=== PATIENT | male | born 1955 | race Caucasian/White ===

== ENCOUNTER 2017-11-30 09:04 | Emergency (ER) | payer BC ==
--- OUTSIDE RECORDS SUMMARY | 2017-11-30 09:11 | XMS REPORT ---
:1955 External Reference #:[id number] Author Organization [employer] Address [address] [facility] [place] [address] [place] [address] Phone [phone] Care Team Providers Name Role Phone Joel Devine MD Primary Care Physician Unavailable Payers Type Date Identification Numbers Payment Provider Subscriber Commercial Effective: Policy Number: [id number] [place] Ag [place] 1988 Group Number: [id number] [address] PayID: [id number] [place] [address] Medigap Part B Expires: 2000 Policy Number: [facility] Ag Vicenten [id number] PayID: [id number] [address] [place] [address] Problems Date Description Provider Status Onset: 11/14/2016 Idiopathic peripheral neuropathy Elena Machuca MD Active Family History Date Family Member(s) Problem(s) Comments Father Heart Disease Father Stroke : (age 70 Father due to Heart bleeding complications on Years) Disease coumadin Father due to Heart () - paternal Disease grandparents, [place] Mother Diabetes Type II Mother Heart Disease Mother due to CHF () Mother due to CHF () - maternal grandparents - [place] age 68 Onset: Siblings 2 (10/13/2016) Siblings 2 1 sister cardiac issues,specifics unknown First Sister Diabetes Type II Social History Type Date Description Comments Marital Status 10/13/2016 single since approx 2009 Lives With Alone 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[employer] ETOH Use Currently consumes alcohol Smoking Patient has never smoked Recreational Drug Use Denies Drug Use Recreational Drug Use Denies Drug Use Alcohol use - 4 - 8 drinks a day Daily Caffeine Does Not Consume Caffeine Exercise Type/Frequency Exercises regularly Allergies, Adverse Reactions, Alerts Date Description Reaction Status Severity Comments 10/13/2016 NKDA active Medications Medication Date Status Form Strength Qnty SIG Indications Ordering Provider Lyrica 10/29/ Active Capsules 50mg 120ca take 1 at G60.9 Elena 2017 ps night for 1 MD Sven week then 1 twice a day for 1 week then 1 in the Am and 2 in the PM for 1 week then 2 twice a day. Propranolol HCL 04/02/ Active Caps ER 60mg 60cap 1 by mouth Anup ER 2016 24HR s every day Elliot Sanchez M.D. Lisinopril-Hydr / Active Tablets 20-12.5mg 90tab 2 tab by Unknown ochlorothiazide 0000 s mouth every morning for high blood pressure Lexapro / Active Tablets 20mg 1/2 by mouth Unknown 0000 every other day Cpap Mask And / Active Device Unknown Supplies 0000 Eszopiclone / Active Tablets 3mg 1 tab by Unknown 0000 mouth at bedtime prn for sleep MDD1 Atorvastatin / Active Tablets 40mg 1 by mouth Unknown Calcium 0000 every day for high cholesterol Klor-Con M20 / Active Tablets ER 20Meq 2 by mouth Unknown 0000 every day for low potassium (increased 10/30/16) Vitamin B-12 / Active Tablets 1000mcg 1 by mouth Unknown 0000 every day Fish Oil Double / Active Capsules 1200mg 2 by mouth Unknown Strength 0000 every day Gabapentin / Active Capsules 300mg 720ca up to 4 by Elena 0000 ps mouth twice MD Sven a day as directed Viagra / Active Tablets 100mg by mouth 0.5 Unknown 0000 or 1 tab 1h before intercourse prn Xarelto / Active Tablets 20mg 1 by mouth Unknown 0000 every day Amlodipine / Active Tablets 10mg 1 by mouth Unknown Besylate 0000 every day Amitriptyline 08/08/ Hx Tablets 25mg 30tab take 1 G60.9 Elena HCL 2017 - s tablet at MD Sven 10/21/ bedtime 2017 Amlodipine / Hx Tablets 10mg 1 by mouth Unknown Besylate 0000 - every day for high 2017 blood pressure Aspirin Ec / Hx Tablets DR 325mg 1 by mouth Unknown 0000 - every day for stroke 2017 prevention Propranolol HCL / Hx Tablets 60mg 1 tab a day Unknown 0000 - 2016 Vital Signs Date Vital Result Comment 10/29/2017 Height 71 inches 5'11" Weight 250.50 lb Heart Rate 80 /min BP Systolic Sitting 126 mmHg BP Diastolic Sitting 80 mmHg BMI (Body Mass Index) 34.9 kg/m2 10/22/2017 Height 71 inches 5'11" Weight 252.00 lb w/o shoes Heart Rate 56 /min BP Systolic Sitting 128 mmHg LA lg cuff BP Diastolic Sitting 70 mmHg LA lg cuff BMI (Body Mass Index) 35.1 kg/m2 Ejection Fraction 55-60% Beau 10/27/16 08/08/2017 Height 71 inches 5'11" Weight 251.38 lb Heart Rate 82 /min BP Systolic 126 mmHg BP Diastolic 84 mmHg BMI (Body Mass Index) 35.1 kg/m2 04/02/2017 Height 71 inches 5'11" Weight 254.25 lb without shoes Heart Rate 72 /min BP Systolic Sitting 134 mmHg LA, large cuff BP Diastolic Sitting 74 mmHg LA, large cuff BMI (Body Mass Index) 35.5 kg/m2 Ejection Fraction 55%-60% Beau 10/27/16 03/09/2017 Height 71 inches 5'11" Weight 255.25 lb Heart Rate 72 /min BP Systolic 130 mmHg BP Diastolic 78 mmHg BMI (Body Mass Index) 35.6 kg/m2 12/05/2016 Height 71 inches 5'11" Weight 262.00 lb Heart Rate 58 /min BP Systolic Sitting 124 mmHg LA, large BP Diastolic Sitting 70 mmHg LA, large BMI (Body Mass Index) 36.5 kg/m2 Ejection Fraction 55-60% Beau 10/27/16 11/14/2016 Height 71 inches 5'11" Weight 260.00 lb Heart Rate 64 /min BP Systolic Sitting 138 mmHg BP Diastolic Sitting 76 mmHg Respiratory Rate 14 /min BMI (Body Mass Index) 36.3 kg/m2 10/31/2016 Height 71 inches 5'11" Weight 269.00 lb with shoes Heart Rate 60 /min BP Systolic Sitting 132 mmHg LA lrg cuff BP Diastolic Sitting 70 mmHg LA lrg cuff BMI (Body Mass Index) 37.5 kg/m2 Ejection Fraction 55% - 60% Beau 10/27/16 10/26/2016 Height 71 inches 5'11" Weight 270.50 lb w/shoes Heart Rate 76 /min BP Systolic Sitting 100 mmHg LA lg cuff BP Diastolic Sitting 80 mmHg LA lg cuff BMI (Body Mass Index) 37.7 kg/m2 10/13/2016 Height 71 inches 5'11" Weight 267.00 lb with shoes Heart Rate 84 /min BP Systolic Sitting 136 mmHg LA lrg cuff BP Diastolic Sitting 82 mmHg LA lrg cuff BP Systolic Standing 128 mmHg la repeat BP Diastolic Standing 70 mmHg la repeat BMI (Body Mass Index) 37.2 kg/m2 Ejection Fraction 55% - 60% echo 12/06/14 Results Test Date Test Result H/L Range Note CBC Auto Diff 04/26/2017 White Blood Count 4.9 10^3/uL 3.5-10.8 Red Blood Count 4.68 10^6/uL 4.0-5.4 Hemoglobin 15.5 g/dL 14.0-18.0 Hematocrit 45 % 42-52 Mean Corpuscular Volume 96 fL High 80-94 Mean Corpuscular Hemoglobin 33 pg High 27-31 Mean Corpuscular HGB Conc 35 g/dL 31-36 Red Cell Distribution Width 13 % 10.5-15 Platelet Count 215 10^3/uL 150-450 Mean Platelet Volume 9 um3 7.4-10.4 Abs Neutrophils 2.8 10^3/uL 1.5-7.7 Abs Lymphocytes 1.4 10^3/uL 1.0-4.8 Abs Monocytes 0.4 10^3/uL 0-0.8 Abs Eosinophils 0.1 10^3/uL 0-0.6 Abs Basophils 0.1 10^3/uL 0-0.2 Abs Nucleated RBC 0 10^3/uL Granulocyte % 58.1 % 38-83 Lymphocyte % 28.7 % 25-47 Monocyte % 8.9 % 1-9 Eosinophil % 3.1 % 0-6 Basophil % 1.2 % 0-2 Nucleated Red Blood Cells % 0.1 Basic Metabolic Panel 04/26/2017 Sodium 139 mmol/L 133-145 Potassium 3.9 mmol/L 3.5-5.0 Chloride 102 mmol/L 101-111 Co2 Carbon Dioxide 27 mmol/L 22-32 Anion Gap 10 mmol/L 2-11 Glucose 86 mg/dL 70-100 Blood Urea Nitrogen 20 mg/dL 6-24 Creatinine 0.87 mg/dL 0.67-1.17 BUN/Creatinine Ratio 23.0 High 8-20 Calcium 9.4 mg/dL 8.6-10.3 Egfr Non- 89.2 >60 Egfr 114.7 >60 1 Laboratory test finding 04/26/2017 Hemoglobin A1c (Glyco HGB) 5.3 % 4.0- 5.6 2 Basic Metabolic Panel 12/05/2016 Sodium 138 mmol/L 133-145 Potassium 4.1 mmol/L 3.5-5.0 Chloride 103 mmol/L 101-111 Co2 Carbon Dioxide 28 mmol/L 22-32 Anion Gap 7 mmol/L 2-11 Glucose 90 mg/dL 70-100 Blood Urea Nitrogen 19 mg/dL 6-24 Creatinine 0.84 mg/dL 0.67-1.17 BUN/Creatinine Ratio 22.6 High 8-20 Calcium 9.2 mg/dL 8.6-10.3 Egfr Non- 92.9 >60 Egfr 119.5 >60 3 Laboratory test finding 12/05/2016 Magnesium 2.2 mg/dL 1.9-2.7 Hemoglobin A1c (Glyco HGB) 5.6 % Less than 6.0 4 Laboratory test finding 11/14/2016 Vitamin B12 525 pg/mL 180-914 5 Methylmalonic Acid Mma 0.15 nmol/mL <=0.40 6 Protein Electrophoresis 11/14/2016 Total Protein(Pep) 6.9 g/dL 6.3 - 7.9 Albumin 3.4 g/dL 3.4-4.7 Alpha-1 Globulin 0.3 g/dL 0.1-0.3 Alpha-2 Globulin 1.0 g/dL 0.6-1.0 Beta Globulin 1.0 g/dL 0.7-1.2 Gamma Globulin 1.2 g/dL 0.6-1.6 Albumin/Globulin Ratio 0.99 Impression See Comment 7 Comp Metabolic Panel 10/27/2016 Sodium 136 mmol/L 133-145 Potassium 3.8 mmol/L 3.5-5.0 Chloride 104 mmol/L 101-111 Co2 Carbon Dioxide 25 mmol/L 22-32 Anion Gap 7 mmol/L 2-11 Glucose 114 mg/dL High 70-100 Blood Urea Nitrogen 18 mg/dL 6-24 Creatinine 0.84 mg/dL 0.67-1.17 BUN/Creatinine Ratio 21.4 High 8-20 Calcium 9.0 mg/dL 8.6-10.3 Total Protein 6.5 g/dL 6.4-8.9 Albumin 3.9 g/dL 3.2-5.2 Globulin 2.6 g/dL 2-4 Albumin/Globulin Ratio 1.5 1-3 Total Bilirubin 0.90 mg/dL 0.2-1.0 Alkaline Phosphatase 70 U/L 34-104 Alt 26 U/L 7-52 Ast 19 U/L 13-39 Egfr Non- 92.9 >60 Egfr 119.5 >60 8 CBC Auto Diff 10/27/2016 White Blood Count 5.9 10^3/uL 3.5-10.8 Red Blood Count 4.71 10^6/uL 4.0-5.4 Hemoglobin 15.1 g/dL 14.0-18.0 Hematocrit 45 % 42-52 Mean Corpuscular Volume 95 fL High 80-94 Mean Corpuscular Hemoglobin 32 pg High 27-31 Mean Corpuscular HGB Conc 34 g/dL 31-36 Red Cell Distribution Width 13 % 10.5-15 Platelet Count 202 10^3/uL 150-450 Mean Platelet Volume 9 um3 7.4-10.4 Abs Neutrophils 3.9 10^3/uL 1.5-7.7 Abs Lymphocytes 1.3 10^3/uL 1.0-4.8 Abs Monocytes 0.5 10^3/uL 0-0.8 Abs Eosinophils 0.1 10^3/uL 0-0.6 Abs Basophils 0.1 10^3/uL 0-0.2 Abs Nucleated RBC 0 10^3/uL Granulocyte % 65.9 % 38-83 Lymphocyte % 22.1 % Low 25-47 Monocyte % 8.5 % 1-9 Eosinophil % 2.4 % 0-6 Basophil % 1.1 % 0-2 Nucleated Red Blood Cells % 0 Laboratory test finding 10/13/2016 TSH (Thyroid Stim Horm) 2.53 mcIU/mL 0.34-5.60 CBC Auto Diff 10/13/2016 White Blood Count 8.9 10^3/uL 3.5-10.8 Red Blood Count 4.86 10^6/uL 4.0-5.4 Hemoglobin 15.7 g/dL 14.0-18.0 Hematocrit 46 % 42-52 Mean Corpuscular Volume 94 fL 80-94 Mean Corpuscular Hemoglobin 32 pg High 27-31 Mean Corpuscular HGB Conc 35 g/dL 31-36 Red Cell Distribution Width 13 % 10.5-15 Platelet Count 207 10^3/uL 150-450 Mean Platelet Volume 9 um3 7.4-10.4 Abs Neutrophils 6.0 10^3/uL 1.5-7.7 Abs Lymphocytes 2.0 10^3/uL 1.0-4.8 Abs Monocytes 0.7 10^3/uL 0-0.8 Abs Eosinophils 0.1 10^3/uL 0-0.6 Abs Basophils 0.1 10^3/uL 0-0.2 Abs Nucleated RBC 0 10^3/uL Granulocyte % 66.8 % 38-83 Lymphocyte % 22.6 % Low 25-47 Monocyte % 8.3 % 1-9 Eosinophil % 1.6 % 0-6 Basophil % 0.7 % 0-2 Nucleated Red Blood Cells % 0 Laboratory test finding 10/13/2016 B-Type Natriuretic Peptide 150 pg/mL High 9 BNP Lipid Profile 10/13/2016 Triglycerides 192 mg/dL 10 (Trig/Chol/HDL) Cholesterol 155 mg/dL 11 HDL Cholesterol 42.1 mg/dL 12 LDL Cholesterol 75 mg/dL 13 Comp Metabolic Panel 10/13/2016 Sodium 137 mmol/L 133-145 Potassium 3.7 mmol/L 3.5-5.0 Chloride 103 mmol/L 101-111 Co2 Carbon Dioxide 26 mmol/L 22-32 Anion Gap 8 mmol/L 2-11 Glucose 95 mg/dL 70-100 Blood Urea Nitrogen 21 mg/dL 6-24 Creatinine 0.90 mg/dL 0.67-1.17 BUN/Creatinine Ratio 23.3 High 8-20 Calcium 9.3 mg/dL 8.6-10.3 Total Protein 6.7 g/dL 6.4-8.9 Albumin 4.2 g/dL 3.2-5.2 Globulin 2.5 g/dL 2-4 Albumin/Globulin Ratio 1.7 1-3 Total Bilirubin 0.90 mg/dL 0.2-1.0 Alkaline Phosphatase 79 U/L 34-104 Alt 21 U/L 7-52 Ast 19 U/L 13-39 Egfr Non- 85.8 >60 Egfr 110.3 >60 14 Lipid Panel - [facility] 10/13/2016 Creatine Kinase(CK) 110 U/L 10-223 1 Because ethnic data is not always readily available, this report includes an eGFR for both -Americans and non- Americans. The National Kidney Disease Education Program (NKDEP) does not endorse the use of the MDRD equation for patients that are not between the ages of 18 and 70, are , have extremes of body size, muscle mass, or nutritional status, or are non- or non-. According to the National Kidney Foundation, irrespective of diagnosis, the stage of the disease is based on the level of kidney function: Stage Description GFR(mL/min/1.73 m(2)) 1 Kidney damage with normal or decreased GFR 90 2 Kidney damage with mild decrease in GFR 60-89 3 Moderate decrease in GFR 30-59 4 Severe decrease in GFR 15-29 5 Kidney failure <15 (or dialysis) 2 Therapeutic target for the treatment of diabetes mellitus patients is <7% HBA1C, and in selective patients <6.0%. Please refer to [place] [employer] diabetic care guidelines for further information. 3 Because ethnic data is not always readily available, this report includes an eGFR for both -Americans and non- Americans. The National Kidney Disease Education Program (NKDEP) does not endorse the use of the MDRD equation for patients that are not between the ages of 18 and 70, are , have extremes of body size, muscle mass, or nutritional status, or are non- or non-. According to the National Kidney Foundation, irrespective of diagnosis, the stage of the disease is based on the level of kidney function: Stage Description GFR(mL/min/1.73 m(2)) 1 Kidney damage with normal or decreased GFR 90 2 Kidney damage with mild decrease in GFR 60-89 3 Moderate decrease in GFR 30-59 4 Severe decrease in GFR 15-29 5 Kidney failure <15 (or dialysis) 4 Therapeutic target for the treatment of diabetes Mellitus patients is <7% HBA1C, and in selective patients <6.0%.Please refer to [place] [employer] Diabetic care guidelines for further information. 5 Normal Range 180 to 914 Indeterminate Range 145 to 180 Deficient Range <145 6 ADDITIONAL INFORMATION This test was developed and its performance characteristics determined by [facility] in a manner consistent with CLIA requirements. This test has not been cleared or approved by the U.S. Food and Drug Administration. Test Performed by: [facility] [address] [place] [address] 7 RESULT: No apparent monoclonal protein on serum electrophoresis. Test Performed by: [facility] [address] [place] [address] 8 Because ethnic data is not always readily available, this report includes an eGFR for both -Americans and non- Americans. The National Kidney Disease Education Program (NKDEP) does not endorse the use of the MDRD equation for patients that are not between the ages of 18 and 70, are , have extremes of body size, muscle mass, or nutritional status, or are non- or non-. According to the National Kidney Foundation, irrespective of diagnosis, the stage of the disease is based on the level of kidney function: Stage Description GFR(mL/min/1.73 m(2)) 1 Kidney damage with normal or decreased GFR 90 2 Kidney damage with mild decrease in GFR 60-89 3 Moderate decrease in GFR 30-59 4 Severe decrease in GFR 15-29 5 Kidney failure <15 (or dialysis) 9 >100 to <200 pg/mL: likely compensated congestive heart failure (CHF) 200 to 400 pg/mL: likely moderate CHF >400 pg/mL: likely moderate to severe CHF 10 Desirable <150 Borderline high 150-199 High 200-499 Very High >500 11 Desirable <200 Borderline high 200-239 High >239 12 Low <40 Desirable: 40-60 High: >60 13 Desirable: <100 mg/dL Near Optimal: 100-129 mg/dL Borderline High: 130-159 mg/dL High: 160-189 mg/dL Very High: >189 mg/dL 14 Because ethnic data is not always readily available, this report includes an eGFR for both -Americans and non- Americans. The National Kidney Disease Education Program (NKDEP) does not endorse the use of the MDRD equation for patients that are not between the ages of 18 and 70, are , have extremes of body size, muscle mass, or nutritional status, or are non- or non-. According to the National Kidney Foundation, irrespective of diagnosis, the stage of the disease is based on the level of kidney function: Stage Description GFR(mL/min/1.73 m(2)) 1 Kidney damage with normal or decreased GFR 90 2 Kidney damage with mild decrease in GFR 60-89 3 Moderate decrease in GFR 30-59 4 Severe decrease in GFR 15-29 5 Kidney failure <15 (or dialysis) Procedures Date CPT Code Description Status 10/22/2017 14113 EKG Tracing & Interpretation Completed 04/02/2017 97646 EKG Tracing & Interpretation Completed 12/15/2016 90925 Treadmill Interp/Report Only Completed 12/15/2016 05851 Stress Test Supervsn W/Out I/R Completed 10/31/2016 32682 EKG Tracing & Interpretation Completed 10/27/2016 57694 Cardioversion Completed 10/27/2016 21267 EKG, Interpretation Only Completed 10/27/2016 04843 Echocardiography, Transesophageal, Real Time W/Image 2D Completed W/W/O M-M 10/27/2016 15869 Pulse Wave/Continuous-Interp.RPT Completed 10/27/2016 87059 Color Flow Doppler/Interp & Reprt Completed 10/26/2016 79111 EKG Tracing & Interpretation Completed 10/18/2016 41745 Color Flow Doppler/Interp & Reprt Completed 10/18/2016 86582 Pulse Wave/Continuous-Interp.RPT Completed 10/18/2016 75394 Echocardiography, Transesophageal, Real Time W/Image 2D Completed W/W/O M-M 10/13/2016 02029 EKG Tracing & Interpretation Completed 12/07/2014 21892 EEG Recording Awake & Drowsy Completed 12/07/2014 96963 ECHO Transthorasic Realtime 2D W Doppler & Color Flow Completed Hosp Encounters Type Date Location Provider CPT E/M Dx Office Visit 10/22/2017 8:40a [facility] Anup Sanchez, [address]44 I48.0 M.D. I10 I42.9 I34.0 E78.00 Office Visit 08/08/2017 4:00p [facility] [place] [address] G60.9 R73.01 Office Visit 04/02/2017 10:20a [facility] Anup Sanchez M.D. 40770 I48.0 I10 R73.01 I34.0 E66.9 Office Visit 03/09/2017 9:00a [facility] [place] [address] G60.9 Office Visit 12/05/2016 10:30a [facility] ROBERT Penn [address]706 I48.0 I10 R73.01 G45.9 Office Visit 11/14/2016 3:00p [facility] [place] [address] G60.9 Of [facility] R73.01 Office Visit 10/31/2016 9:00a [facility] Anup Sanchez M.D. 92302 I48.0 I10 R73.01 G45.9 R94.31 I34.0 Office Visit 10/26/2016 9:40a [facility] Anup Sanchez M.D. 66111 I48.0 R94.31 I10 Office Visit 10/13/2016 3:00p [facility] Anup Sanchez M.D. 74291 I48.0 I10 R94.31 R73.01 E66.9 Office Visit 12/07/2014 3:05p [facility] [address] 437.7 Office Visit 12/07/2014 10:18a [facility] [address] 401.9 Hospitalists D.O. 437.7 Office Visit 12/06/2014 2:24p [facility] [address] 437.7 Office Visit 12/06/2014 10:17a [facility] 64655 437.7 Hospitalists D.O. 401.9 Plan of Care Future Appointment(s):02/28/2018 10:30 am - Antoine Gilmore M.D. at [facility]10/29/2017 - Elena Machuca MDG60.9 Hereditary and idiopathic neuropathy, unspecifiedNew Medication:Lyrica 50 mgFollow up:: [address] Lechugations:We will try transitioning you over to Lyrica from gabapentin. Decrease gabapentin to 3 twice a day for 1 week then 2 twice a day for 1 week then 1 twice a day for 1 week then 1 at night for 1 week then stop You can start Lyrica right away, or you can wait until you are doing to 2 twice a day of gabapentin because you may have more side effects like sleepiness taking both of these medicines together. Possible side effects of Lyrica include sleepiness, ankle swelling
[2017-11-30 09:15] VITALS: BP 137/73
--- NOTE | 2017-11-30 09:21 | UC ---
Laceration HPI - HPI Summary HPI Summary: This pt is a 62 y/o male presenting to [facility] c/o laceration on left hand today. Pt reports this morning he was helping put together metal shelving. He states he sustained a laceration on his left palm and left second finger. He denies any other injuries today. Pt's last tetanus shot was on 08/13/11. - History Of Current Complaint Chief Complaint: UCLaceration Stated Complaint: LEFT FINGER INJURY Time Seen by Provider: 11/30/17 09:15 Hx Obtained From: Patient Laceration Location: Hand - left Mechanism Of Injury: Sharp Trauma Onset/Duration: Sudden Onset, Still Present Severity: Mild Pain Intensity: 3 Pain Scale Used: 0-10 Numeric Aggravating Factors: Nothing - Allergies/Home Medications Allergies/Adverse Reactions: Allergies Allergy/AdvReac Type Severity Reaction Status Date / Time No Known Allergies Allergy Verified 11/30/17 09:15 Home Medications: Home Medications Pregabalin [Lyrica] 50 mg PO DAILY 11/30/17 [History Confirmed 11/30/17] PMH/Surg Hx/FS Hx/Imm Hx Other Endocrine History: DENIES: diabetes Cardiovascular History: Hypertension Other Respiratory History: sleep apnea Neurological History: TIA - Surgical History Surgical History: Yes Surgery Procedure, Year, and Place: Deviated Septum. ureterocele - Family History Known Family History: Positive: Cardiac Disease - Father, Diabetes - Mother - Social History Alcohol Use: Daily Alcohol Amount: states 4 beer/wine a day, girlfriend states 8-10 Substance Use Type: None Smoking Status (MU): Never Smoked Tobacco Have You Smoked in the Last Year: No - Immunization History Most Recent Influenza Vaccination: fall Most Recent Tetanus Shot: 08/13/11 Most Recent Pneumonia Vaccination: none Review of Systems Constitutional: Negative Skin: Other - laceration on left hand Eyes: Negative ENT: Negative Respiratory: Negative Cardiovascular: Negative Gastrointestinal: Negative Genitourinary: Negative Motor: Negative Neurovascular: Negative Musculoskeletal: Negative Neurological: Negative Psychological: Negative All Other Systems Reviewed And Are Negative: Yes Physical Exam - Summary Physical Exam Summary: VITAL SIGNS: Reviewed. GENERAL: Patient is a well-developed and nourished male. Patient is not in any acute respiratory distress. HEAD AND FACE: Normocephalic EYES: PERRLA, EOMI x 2. EARS: Hearing grossly intact. MOUTH: Oropharynx within normal limits. NECK: Supple, trachea is midline, no adenopathy, no JVD, no carotid bruit. CHEST: Symmetric, no tenderness at palpation LUNGS: Clear to auscultation bilaterally. No wheezing or crackles. CVS: Regular rate and rhythm, S1 and S2 present, no murmurs or gallops appreciated. ABDOMEN: Soft, non-tender. Bowel sounds are normal. No abdominal abnormal pulsations. EXTREMITIES: Full ROM in all major joints, no edema, no cyanosis or clubbing. NEURO: Alert and oriented x 3. No acute neurological deficits. Speech is normal and follows commands. SKIN: Dry and warm. LUE: small laceration approximately 0.5 cm on left palm between first and second digits. Small laceration of 3 mm on left index finger on the middle phalanx. Triage Information Reviewed: Yes Vital Signs: Initial Vital Signs Temp 97 F 11/30/17 09:10 Pulse 55 11/30/17 09:10 Resp 18 11/30/17 09:10 BP 137/73 11/30/17 09:10 Pulse Ox 96 11/30/17 09:10 Vital Signs Reviewed: Yes Laceration Repair - Laceration Repair 1 Procedure Summary: Left palm, web between first and second fingers Description: Linear Laceration Size After Repair: Length (cm) - 0.5 Anesthesia Used: 2.0% Lido Cleansing Completed Via Routine Prep: Yes Closure Material: Sutures - 3 Closure Method: Single Layer Suture Of: Skin Suture Type: Other - 4-O 2 Procedure Summary: Left index finger Description: Linear Laceration Size After Repair: Length (cm) - 3 mm Anesthesia Used: 2.0% Lido Cleansing Completed Via Routine Prep: Yes Closure Material: Sutures - 1 Suture Of: Skin Suture Type: Other - 4-O Laceration Course/Dx - Course/Dx Course Of Treatment: Pt is a 62 y/o male presenting to [facility] c/o laceration on left hand today. Pt reports this morning he was helping put together metal shelving. He states he sustained a laceration on his left palm and left second finger. He denies any other injuries today. Pt's last tetanus shot was on . I used 2% lidocaine for laceration repair. I placed 3 sutures on left palm and 1 suture on left index finger. Pt tolerated the procedure well. Please see procedure note. He was also given a tetanus boostrix. Pt was discharged home and was given instructions to return in 7 to 10 days for suture removal. Plan of care was discussed with the patient and pt understands and agrees. Pt was instructed to return to the urgent care or go to ER immediately if any of the symptoms return or worsens. All questions were answered to patient satisfaction. There were no further complaints or concerns. Pt is hemodynamically stable, alert and oriented x3. The patient was found to have increased blood pressure in UC. The patient will follow up with PCP for better control of BP. - Differential Dx - Laceration/Wound Provider Diagnoses: Laceration Discharge - Sign-Out/Discharge Documenting (check all that apply): Patient Departure - Discharge - Discharge Plan Condition: Stable Disposition: HOME Patient Education Materials: Laceration (ED) Referrals: Joel Devine MD [Primary Care Provider] - Additional Instructions: FOLLOW UP WITH YOUR PRIMARY CARE PROVIDER WITHIN ONE WEEK FOR HIGH BLOOD PRESSURE NOTED TODAY. RETURN TO URGENT CARE OR THE ED FOR ANY WORSENING OR NEW SYMPTOMS. Return to the urgent care or go to the primary care physician for suture removal in 7-10 days. - Billing Disposition and Condition Condition: STABLE Disposition: Home
[2017-11-30] MEDS ORDERED: Lidocaine 2% PF * 5 ML VIAL INJ ONE (09:27)
[2017-11-30] MEDS ORDERED: Tetan/Diph/Pertus SYR(Tdap)* 0.5 ML SYR(BOOSTRIX) use SYR IM ONE (09:52)
== END 2017-11-30 10:06 | disposition home or self-care (01) ==
LOC: UCEAST 09:04
DX: S61.412A Laceration without foreign body of left hand, initial encounter (principal); S61.211A Laceration without foreign body of left index finger without damage to nail, initial encounter; W26.8XXA Contact with other sharp object(s), not elsewhere classified, initial encounter; Y93.89 Activity, other specified; Y92.9 Unspecified place or not applicable; Z23 Encounter for immunization; I10 Essential (primary) hypertension; G47.30 Sleep apnea, unspecified; Z82.49 Family history of ischemic heart disease and other diseases of the circulatory system; Z83.3 Family history of diabetes mellitus
CPT/HCPCS: 12001; 90471; 90715; 99212; 99213; G0463

== ENCOUNTER 2017-12-13 08:44 | Emergency (ER) | payer BC ==
[2017-12-13 08:55] VITALS: BP 153/73
--- NOTE | 2017-12-13 09:15 | UC ---
HPI Wound/Suture Re-check - HPI Summary HPI Summary: This is a 62-year-old male who reports here for removal of a single stitch on his left palm. He states she was sutured here 2 weeks ago. He states that 3 of the sutures pulled through and came out on their own. Denies any complaints. - History Of Current Complaint Chief Complaint: UCWounds Stated Complaint: L HAND STITCHES REMOVAL Time Seen by Provider: 12/13/17 09:07 Hx Obtained From: Patient Onset/Duration: Sudden Onset Pain Intensity: 0 Pain Scale Used: 0-10 Numeric - Allergies/Home Medications Allergies/Adverse Reactions: Allergies Allergy/AdvReac Type Severity Reaction Status Date / Time No Known Allergies Allergy Verified 12/13/17 08:53 PMH/Surg Hx/FS Hx/Imm Hx Previously Healthy: Yes Endocrine History: Dyslipidemia Cardiovascular History: Hypertension - Surgical History Surgical History: Yes Surgery Procedure, Year, and Place: Deviated Septum. ureterocele - Family History Known Family History: Positive: Cardiac Disease - Father, Diabetes - Mother - Social History Alcohol Use: Daily Alcohol Amount: states 4 beer/wine a day, girlfriend states 8-10 Substance Use Type: None Smoking Status (MU): Never Smoked Tobacco Have You Smoked in the Last Year: No - Immunization History Most Recent Influenza Vaccination: fall Most Recent Tetanus Shot: 08/13/11 Most Recent Pneumonia Vaccination: none Review of Systems Constitutional: Negative Skin: Negative Eyes: Negative ENT: Negative Respiratory: Negative Cardiovascular: Negative Gastrointestinal: Negative Genitourinary: Negative Motor: Negative Neurovascular: Negative Musculoskeletal: Negative Neurological: Negative Psychological: Negative Is Patient Immunocompromised?: No All Other Systems Reviewed And Are Negative: Yes Physical Exam Triage Information Reviewed: Yes Appearance: Well-Appearing, No Pain Distress, Well-Nourished Vital Signs: Initial Vital Signs Temp 98.3 F 12/13/17 08:49 Pulse 62 12/13/17 08:49 Resp 18 12/13/17 08:49 BP 153/73 12/13/17 08:49 Pulse Ox 96 12/13/17 08:49 Vital Signs Reviewed: Yes ENT: Positive: Hearing grossly normal. Negative: Nasal congestion, Nasal drainage, Trismus, Muffled voice, Hoarse voice Neck: Positive: Supple, Nontender Respiratory: Positive: Lungs clear, Normal breath sounds, No respiratory distress Cardiovascular: Positive: RRR, No Murmur Musculoskeletal: Positive: ROM Intact, No Edema Neurological: Positive: Alert Psychological Exam: Normal Skin Exam: Normal Course/Dx - Course Course Of Treatment: single suture removed. laceration well healed - Differential Dx - Laceration/Wound Provider Diagnoses: suture removal left hand Discharge - Sign-Out/Discharge Documenting (check all that apply): Patient Departure - Discharge Plan Condition: Stable Disposition: HOME Referrals: Joel Devine MD [Primary Care Provider] - Additional Instructions: sutures removed call for any questions return for any problems - Billing Disposition and Condition Condition: STABLE Disposition: Home
== END 2017-12-13 09:18 | disposition home or self-care (01) ==
LOC: UCEAST 08:44
DX: S61.412D Laceration without foreign body of left hand, subsequent encounter (principal); W45.8XXD Other foreign body or object entering through skin, subsequent encounter; Z82.49 Family history of ischemic heart disease and other diseases of the circulatory system; Z83.3 Family history of diabetes mellitus

== ENCOUNTER 2018-12-17 13:47 | Emergency (ER) | payer BC ==
[2018-12-17 16:15] LABS: INR 1.37 (0.82-1.09)
[2018-12-17 16:20] LABS: ABS Eosinophils 0.1 10^3/ul (0-0.6); ABS Lymphocytes 1.6 10^3/ul (1.0-4.8); ABS Monocytes 0.6 10^3/ul (0-0.8); ABS Neutrophils 5.1 10^3/ul (1.5-7.7); Eosinophil % 1.3 %; Hematocrit 46 % (42-52); Hemoglobin 16.1 g/dL (14.0-18.0); Lymphocyte % 21.1 %; Mean Corpuscular HGB Conc 35 g/dL (31-36); Mean Corpuscular Hemoglobin 34 pg (27-31); Mean Corpuscular Volume 95 fL (80-94); Mean Platelet Volume 8.9 fL (7.4-10.4); Nucleated Red Blood Cells % 0.1; Platelet Count 197 10^3/uL (150-450); Red Blood Count 4.79 10^6 /uL (4.18-5.48); Red Cell Distribution Width 13 % (10-15); White Blood Count 7.4 10^3/uL (3.5-10.8)
[2018-12-17 16:41] LABS: Albumin 4.3 g/dL (3.2-5.2); Albumin/Globulin Ratio 1.6 (1-3); BUN/Creatinine Ratio 24.4 (8-20); Calcium 9.4 mg/dL (8.6-10.3); EGFR African American 114.8 (>60); EGFR Non-African American 94.9 (>60); Globulin 2.7 g/dL (2-4); Potassium 4.1 mmol/L (3.5-5.0); Total Bilirubin 0.8 mg/dL (0.2-1.0)
--- NOTE | 2018-12-17 16:56 | ED ---
HPI Cardiac - HPI Summary HPI Summary: The pt is a 63 yr old male presenting to [facility] c/o of palpitations. He was walking up stairs when he noticed his HR increase and feel weird, so his put her Apple Watch on his wrist, and the built-in ECG monitor told him he was in atrial fibrillation. The palpitations have since resolved with rest. He reports he has a chronic tremor, but noticed associated sx including fluid in his feet, and feeling unsteady. He denies fever, chills , CP, N/V/D, abd pain, burning with urination, rashes, dizziness, or lightheadedness. He has Hx of Afib. - History of Current Complaint Chief Complaint: EDDysrhythmPalp Stated Complaint: ATRIAL FIBRULATION PER PT Time Seen by Provider: 12/17/18 16:39 Hx Obtained From: Patient Onset/Duration: Started Hours Ago, Resolved Timing: Intermittent Initial Severity: Mild Current Severity: None Pain Intensity: 0 Pain Scale Used: 0-10 Numeric Character: Fast, Irregular Aggravating Factor(s): Exertion Alleviating Factor(s): Rest Associated Signs and Symptoms: Positive: Negative - burning with urination, rash , Edema - in feet, Other: - tremors, fluid in feet, feeling unsteady.. Negative : Chest Pain, Dizziness, Swelling, Fever, Chills, Lightheadedness, Nausea, Abdominal Pain, Vomiting - Additional Pertinent History Primary Care Physician: BEV - Allergy/Home Medications Allergies/Adverse Reactions: Allergies Allergy/AdvReac Type Severity Reaction Status Date / Time No Known Allergies Allergy Verified 12/17/18 13:55 Home Medications: Home Medications Cyanocobalamin (Vitamin B-12) [Vitamin B-12] 1,000 mcg SL DAILY 12/17/18 [ History Confirmed 12/17/18] Escitalopram * [Lexapro 10 mg (NF)] 10 mg PO EVERY OTHER DAY 12/17/18 [History Confirmed 12/17/18] Rivaroxaban TAB(*) [Xarelto 20 mg] 20 mg PO DAILY WITH MEAL 12/17/18 [History Confirmed 12/17/18] Sildenafil Citrate [Viagra] 50 - 100 mg PO DAILY PRN 12/17/18 [History Confirmed 12/17/18] PMH/Surg Hx/FS Hx/Imm Hx Previously Healthy: No Endocrine/Hematology History: Denies: Hx Diabetes Cardiovascular History: Reports: Hx Hypercholesterolemia, Hx Hypertension, Other Cardiovascular Problems/Disorders - syncope Denies: Hx Angina, Hx Coronary Artery Disease, Hx Myocardial Infarction, Hx Pacemaker/ICD Respiratory History: Reports: Hx Sleep Apnea Denies: Hx Asthma Sensory History: Reports: Hx Contacts or Glasses Denies: Hx Hearing Aid Opthamlomology History: Reports: Hx Contacts or Glasses Neurological History: Reports: Hx Transient Ischemic Attacks (TIA) Psychiatric History: Reports: Hx Depression Denies: Hx Panic Disorder - Surgical History Surgery Procedure, Year, and Place: Deviated Septum. ureterocele Infectious Disease History: No Infectious Disease History: Denies: Hx Clostridium Difficile, Hx Hepatitis, Hx Human Immunodeficiency Virus (HIV), Hx of Known/Suspected MRSA, Hx Shingles, Hx Tuberculosis, Hx Known/ Suspected VRE, Hx Known/Suspected VRSA, History Other Infectious Disease, Traveled Outside the [place] in Last 30 Days - Family History Known Family History: Positive: Cardiac Disease - Father, Diabetes - Mother - Social History Alcohol Use: Daily Alcohol Amount: states 4 beer/wine a day, girlfriend states 8-10 Hx Substance Use: No Substance Use Type: Reports: None Hx Tobacco Use: No Smoking Status (MU): Never Smoked Tobacco Have You Smoked in the Last Year: No Review of Systems Negative: Fever, Chills Negative: Chest Pain Negative: Abdominal Pain, Vomiting, Diarrhea, Nausea Negative: burning Positive: Edema - fluid in feet, Other - unsteady gait Negative: Rash Neurological: Negative - dizziness, Other - lightheadedness All Other Systems Reviewed And Are Negative: Yes Physical Exam - Summary Physical Exam Summary: Constitutional: Well-developed, Well-nourished, Alert. (-) Distressed Skin: Warm, Dry HENT: Normocephalic; Atraumatic Eyes: Conjunctiva normal Neck: Musculoskeletal ROM normal neck. (-) JVD, (-) Stridor, (-) Tracheal deviation Cardio: Irregularly irregular rhythm, rate normal, Heart sounds normal; Intact distal pulses; The pedal pulses are 2+ and symmetric. Radial pulses are 2+ and symmetric. (-) Murmur Pulmonary/Chest wall: Effort normal. (-) Respiratory distress, (-) Wheezes, (-) Rales Abd: Soft, (-) tenderness, (-) Distension, (-) Guarding, (-) Rebound Musculoskeletal: (-) Edema Lymph: (-) Cervical adenopathy Neuro: Alert, Oriented x3 Psych: Mood and affect Normal Triage Information Reviewed: Yes Vital Signs On Initial Exam: Initial Vitals Temp Pulse Resp BP Pulse Ox 97.4 F 85 16 124/79 96 12/17/18 13:49 12/17/18 13:49 12/17/18 13:49 12/17/18 13:49 12/17/18 13:49 Vital Signs Reviewed: Yes Diagnostics - Vital Signs Vital Signs Temp Pulse Resp BP Pulse Ox 12/17/18 15:42 98.8 F 86 16 124/86 96 12/17/18 13:49 97.4 F 85 16 124/79 96 - Laboratory Lab Results: Lab Results 12/17/18 12/17/18 12/17/18 Range/Units 15:57 15:57 15:57 WBC 7.4 (3.5-10.8) 10^3/uL RBC 4.79 (4.18-5.48) 10^6 /uL Hgb 16.1 (14.0-18.0) g/dL Hct 46 (42-52) % MCV 95 H (80-94) fL MCH 34 H (27-31) pg MCHC 35 (31-36) g/dL RDW 13 (10-15) % Plt Count 197 (150-450) 10^3/uL MPV 8.9 (7.4-10.4) fL Neut % (Auto) 69.1 % Lymph % (Auto) 21.1 % Richardson % (Auto) 7.9 % Eos % (Auto) 1.3 % Baso % (Auto) 0.6 % Absolute Neuts (auto) 5.1 (1.5-7.7) 10^3/ul Absolute Lymphs (auto) 1.6 (1.0-4.8) 10^3/ul Absolute Monos (auto) 0.6 (0-0.8) 10^3/ul Absolute Eos (auto) 0.1 (0-0.6) 10^3/ul Absolute Basos (auto) 0.0 (0-0.2) 10^3/ul Absolute Nucleated RBC 0.0 10^3/ul Nucleated RBC % 0.1 INR (Anticoag Therapy) 1.37 H (0.82-1.09) Sodium 140 (135-145) mmol/L Potassium 4.1 (3.5-5.0) mmol/L Chloride 106 (101-111) mmol/L Carbon Dioxide 25 (22-32) mmol/L Anion Gap 9 (2-11) mmol/L BUN 20 (6-24) mg/dL Creatinine 0.82 (0.67-1.17) mg/dL Est GFR ( Amer) 114.8 (>60) Est GFR (Non-Af Amer) 94.9 (>60) BUN/Creatinine Ratio 24.4 H (8-20) Glucose 107 H (70-100) mg/dL Calcium 9.4 (8.6-10.3) mg/dL Total Bilirubin 0.80 (0.2-1.0) mg/dL AST 28 (13-39) U/L ALT 32 (7-52) U/L Alkaline Phosphatase 80 (34-104) U/L Troponin I 0.00 (<0.04) ng/mL Total Protein 7.0 (6.4-8.9) g/dL Albumin 4.3 (3.2-5.2) g/dL Globulin 2.7 (2-4) g/dL Albumin/Globulin Ratio 1.6 (1-3) Result Diagrams: 12/17/18 15:57 12/17/18 15:57 Lab Statement: Any lab studies that have been ordered have been reviewed, and results considered in the medical decision making process. - Radiology CXR Radiology Interpretation Completed By: Radiologist Summary of Radiographic Findings: IMPRESSION: NO ACTIVE CARDIOPULMONARY DISEASE. ED physician has reviewed this report. - EKG 1353 Cardiac Rate: Other Rate - atrial fibrillation 93bpm EKG Rhythm: Atrial Fibrillation ST Segment: Non-Specific Ectopy: None Summary of EKG Findings: EKG at 1353 shows atrial fibrillation at 93bpm with nml axis, ST depression in v4-v6, flat T waves in aVF and lead III. This is a nonspecific EKG. Disposition - Course Course Of Treatment: The pt is a 63 yr old male presenting to [facility] c/o of palpitations. He was walking up stairs when he noticed his HR increase and feel weird, so his put her Apple Watch on his wrist, and the built-in ECG monitor told him he was in atrial fibrillation. The palpitations have since resolved with rest. He reports he has a chronic tremor, but noticed associated sx including fluid in his feet, and feeling unsteady. He denies fever, chills , CP, N/V/D, abd pain, burning with urination, rashes, edema, dizziness, or lightheadedness. He has Hx of Afib. The physical exam is only notable for Irregularly irregular rhythm. Test results normal except for MCV @ 95, MCH @ 34 , INR @ 1.37, BUN/Creatinine Ratio @ 24.4, and Glucose @ 107. CXR reveals: no active cardiopulmonary disease. In the ED course the pt was given 100 mcg Fentanyl IV and [address] Mosqueda was consulted at 1800 and recommends a 2nd troponin and cardioversion. EKG at 1353 shows atrial fibrillation at 93bpm with nml axis, ST depression in v4-v6, flat T waves in aVF and lead III. This is a nonspecific EKG. Pt was diagnosed with atrial fibrillation and signed off to Dr. Rosales at 1900 12/17/18 shift change. - Diagnoses Provider Diagnoses: Atrial fibrillation Discharge - Sign-Out/Discharge Documenting (check all that apply): Sign-Out Patient Signing out patient TO: Lennie Rosales - Discharge Plan Condition: Stable Patient Education Materials: Moderate Sedation (ED) Referrals: Joel Devine MD [Primary Care Provider] - - Attestation Statements Document Initiated by Scribe: Yes Documenting Scribe: Ag Carlton Provider For Whom Scribe is Documenting (Include Credential): Anuradha Meraz MD Scribe Attestation: Ag Ngo, scribed for Anuradha Moreno MD on 12/17/18 at 1950.
[2018-12-17 18:59] LABS: Magnesium 2.2 mg/dL (1.9-2.7)
--- NOTE | 2018-12-17 19:12 | ED ---
Progress - Progress Note Progress Note: This patient was signed out from Dr. Reza to Dr. Rosales at shift change at 1900, pending disposition, awaiting troponin and magnesium. Second troponin is 0.0. Magnesium is 2.2. The patients condition is stable and will be discharged to home with Dx of Atrial Fibrillation. - Results/Orders Results/Orders: EKG at 1942 reveals sinus rhythm 55 bpm, non-specific ST and T-wave changes; no changes from previous EKG. Re-Evaluation - Re-Evaluation First Eval Re-Evaluation Time: 19:32 Comment: Consent for moderate sedation obtained. Second Eval Re-Evaluation Time: 19:34 Comment: Under moderate sedation pt was cardioverted. Third Eval Re-Evaluation Time: 20:19 Change: Improved Comment: Discussed plan of care with pt. Course/Dx - Course Course Of Treatment: This patient was signed out from Dr. Reza awaiting troponin. Second troponin is 0.0. Pt was placed under moderate sedation. Consent was obtained from pt. Pt was given fentanyl 100 mcg IV, and Versed 5mg IV. Took 15 minutes. Under moderate sedation pt was cardioverted using synch current 100 veronica. During first attempt pt was converted to sinus rhythm, with no complications. The patients condition is stable and will be discharged to home with follow up with project facilitator. - Diagnoses Provider Diagnoses: Atrial fibrillation Discharge - Sign-Out/Discharge Documenting (check all that apply): Patient Departure - Discharge Patient Received Moderate/Deep Sedation with Procedure: Yes - Discharge Plan Condition: Stable Disposition: HOME Patient Education Materials: A-fib (Atrial Fibrillation) (ED), Moderate Sedation (ED) Referrals: Joel Devine MD [Primary Care Provider] - 3 Days Additional Instructions: FOLLOW UP WITH [facility] WITHIN 3 DAYS. PLEASE RETURN TO THE ED IMMEDIATELY FOR WORSENING OR CONCERNING SYMPTOMS. - Attestation Statements Document Initiated by Scribe: Yes Documenting Scribe: Teresa Carranza Provider For Whom Scribe is Documenting (Include Credential): Dr. Lennie Rosales MD Scribe Attestation: Teresa Ngo, scribed for Dr. Lennie Rosales MD on 12/17/18 at 2027. Status of Scribe Document: Ready Procedure Note: Sedation - Sedation/Analgesia Procedure: Moderate Sedation Informed Consent Obtained: Yes Plan for Sedation: Moderate Sedation - Pt was placed under moderate sedation. Consent was obtained from pt. Pt was given fentanyl 100 mcg IV, and Versed 5mg IV. Took 15 minutes. Procedures - Additional Procedures Additional Procedures: cardioversion/defib - Under moderate sedation pt was cardioverted using synch current 100 veronica. During first attempt pt was converted to sinus rhythm with no complications.
[2018-12-17] MEDS ORDERED: fentaNYL* 50 MCG/ML 2 ML VIAL (100 MCG VIAL) IV SLOW PU ONE (19:28)
[2018-12-17] MEDS ORDERED: Midazolam* 1 MG/ML 5 ML VIAL (5 MG) IV SLOW PU ONE (19:28)
[2018-12-17] MEDS ORDERED: NS 0.9% 1000 ML** 1,000 ML IV ONE (19:29)
[2018-12-17 20:36] VITALS: BP 153/85
== END 2018-12-17 20:33 | disposition home or self-care (01) ==
LOC: ED 13:47
DX: I48.91 Unspecified atrial fibrillation (principal); Z79.01 Long term (current) use of anticoagulants; R60.9 Edema, unspecified; R26.81 Unsteadiness on feet; I10 Essential (primary) hypertension; F32.9 Major depressive disorder, single episode, unspecified; Z86.73 Personal history of transient ischemic attack (TIA), and cerebral infarction without residual deficits; Z82.49 Family history of ischemic heart disease and other diseases of the circulatory system; Z83.3 Family history of diabetes mellitus
CPT/HCPCS: 36415; 71045; 80053; 83735; 84484; 85025; 85610; 92960; 93005; 96360; 96361; 99156; 99284; J2250; J3010